=== PATIENT | female | born 1980 | race Caucasian/White ===

== ENCOUNTER 2020-07-16 16:46 | Emergency (ER) | payer SELFPAY ==
[~2020-07-16] VITALS: Ht 162.6 cm; Wt 109.0 kg
[2020-07-16 17:33] VITALS: BP 144/79
[2020-07-16] MEDS ORDERED: ONDANSETRON 4MG ODT PO ONE (18:15)
[2020-07-16] MEDS ORDERED: HYDROCODONE/ACETAMINOPHEN 5/325MG TABLET PO ONE (18:15)
== END 2020-07-16 19:30 | disposition left against medical advice (07) ==
LOC: ER 16:46
DX: R10.32 Left lower quadrant pain (principal); Z86.73 Personal history of transient ischemic attack (TIA), and cerebral infarction without residual deficits; Z98.51 Tubal ligation status; Z88.8 Allergy status to other drugs, medicaments and biological substances; Z91.041 Radiographic dye allergy status
CPT/HCPCS: 93005; 99281; C1893